=== PATIENT | female | born 1980 | race American Indian/Alaskan Native ===

== ENCOUNTER 2017-06-26 09:13 | Emergency (ER) | payer OTHER, MEDICAID ==
[2017-06-26 10:40] VITALS: BP 126/76
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
== END 2017-06-26 12:23 | disposition home or self-care (01) ==
LOC: ED 09:13
DX: S46.911A Strain of unspecified muscle, fascia and tendon at shoulder and upper arm level, right arm, initial encounter (principal); S29.012A Strain of muscle and tendon of back wall of thorax, initial encounter; V49.49XA Driver injured in collision with other motor vehicles in traffic accident, initial encounter; Y93.89 Activity, other specified; Y92.89 Other specified places as the place of occurrence of the external cause; Y99.8 Other external cause status
CPT/HCPCS: 99282

== ENCOUNTER 2021-03-31 10:29 | Emergency (ER) | payer MEDICAID, OTHER ==
[2021-03-31 10:38] VITALS: BP 125/70
--- NOTE | 2021-03-31 13:42 | Emergency Department Report ---
- General Chief Complaint: Upper Respiratory Infection Stated Complaint: CHEST PAIN/COUGH/FATIQUE Time Seen by Provider: 03/31/21 13:09 Source: patient Mode of arrival: Ambulatory Limitations: No Limitations - History of Present Illness Initial Comments: Patient is a 40-year-old female presents emergency room complaints of URI symptoms that began 3 days ago. She has associated cough, fatigue, generalized body aches, chills, shortness of breath. she states she has chest soreness after coughing. She denies any vomiting, diarrhea, abdominal pain, leg swelling. She has not received COVID-19 vaccine. She states that she got tested for COVID-19 yesterday but is awaiting her results. No past medical history. No allergies to medications. She denies any known sick contacts or recent travel. - Related Data Previous Rx's Medication Instructions Recorded Last Taken Type Acetaminophen 650 mg PO QID PRN #60 tablet 06/26/17 Unknown Rx Diclofenac Sodium [Voltaren] 1 applicator TP BID PRN #1 tube 06/26/17 Unknown Rx Benzonatate [Tessalon Perles] 100 mg PO Q8HR PRN #12 capsule 03/31/21 Unknown Rx guaiFENesin ER [Mucinex ER] 600 mg PO Q12H #14 tablet.er 03/31/21 Unknown Rx Allergies Allergy/AdvReac Type Severity Reaction Status Date / Time No Known Allergies Allergy Verified 03/31/21 10:33 ED Review of Systems ROS: Stated complaint: CHEST PAIN/COUGH/FATIQUE Other details as noted in HPI Comment: All other systems reviewed and negative ED Past Medical Hx - Past Medical History Previous Medical History?: No - Surgical History Past Surgical History?: No - Social History Smoking Status: Never Smoker Substance Use Type: None - Medications Home Medications: Home Medications Medication Instructions Recorded Confirmed Last Taken Type Acetaminophen 650 mg PO QID PRN #60 tablet 06/26/17 Unknown Rx Diclofenac Sodium [Voltaren] 1 applicator TP BID PRN #1 tube 06/26/17 Unknown Rx Benzonatate [Tessalon Perles] 100 mg PO Q8HR PRN #12 capsule 03/31/21 Unknown Rx guaiFENesin ER [Mucinex ER] 600 mg PO Q12H #14 tablet.er 03/31/21 Unknown Rx ED Physical Exam - General Limitations: No Limitations General appearance: alert, in no apparent distress - Head Head exam: Present: atraumatic, normocephalic - Eye Eye exam: Present: normal appearance - ENT ENT exam: Present: mucous membranes moist - Respiratory Respiratory exam: Present: normal lung sounds bilaterally. Absent: respiratory distress, wheezes, rales, rhonchi, stridor, chest wall tenderness, accessory muscle use, decreased breath sounds, prolonged expiratory - Cardiovascular Cardiovascular Exam: Present: regular rate, normal rhythm, normal heart sounds. Absent: systolic murmur, diastolic murmur, rubs, gallop - Neurological Exam Neurological exam: Present: alert, oriented X3 - Psychiatric Psychiatric exam: Present: normal affect, normal mood - Skin Skin exam: Present: warm, dry, intact ED Course Vital Signs 03/31/21 10:36 Temperature 99.0 F Pulse Rate 94 H Respiratory 18 Rate Blood Pressure 125/70 O2 Sat by Pulse 100 Oximetry ED Medical Decision Making - EKG Data EKG shows normal: sinus rhythm, axis, intervals, QRS complexes, ST-T waves Rate: normal - Radiology Data Radiology results: report reviewed Ordering Physician: YINA OROZCO Date of Service: 03/31/21 Procedure(s): XR chest routine 2V Accession Number(s): [id number] cc: YINA OROZCO Fluoro Time In Minutes: CHEST 2 VIEWS INDICATION: cough, SOB. COMPARISON: None FINDINGS: Support devices: None. Heart: Within normal limits. Lungs/pleura: No acute air space or interstitial disease. No pneumothorax. Additional findings: None. IMPRESSION: No acute findings. Signer Name: Silvano Blackwell Jr, MD Signed: 03/31/2021 1:41 PM Workstation Name: [id number] Transcribed By: TTR Dictated By: SILVANO BLACKWELL JR, MD Electronically Authenticated By: SILVANO BLACKWELL JR, MD Signed Date/Time: 03/31/21 134 DD/ 40 TD/TT: - Medical Decision Making Patient is a 40-year-old female presents emergency room complaints of URI symptoms that began 3 days ago. She has associated cough, fatigue, generalized body aches, chills, shortness of breath. she states she has chest soreness after coughing. She denies any vomiting, diarrhea, abdominal pain, leg swelling. She has not received COVID-19 vaccine. She states that she got tested for COVID-19 yesterday but is awaiting her results. No past medical history. No allergies to medications. She denies any known sick contacts or recent travel. Vitals are normal. No abnormality on physical examination as documented in chart. EKG ordered prior to my examination and was within normal limits. Chest x-ray: No acute findings. I ambulated patient in the emergency department for 2 minutes and her oxygen saturation is 99 to 100% on room air. Symptoms likely consistent with viral URI. Patient is presenting with the symptoms during COVID-19 pandemic, discussed COVID-19 with patient, discussed outpatient testing and to quarantine as necessary, discuss strict return precautions. Patient given prescription for medications for symptomatic relief. Advised patient Please take medication as prescribed. Please increase your fluid intake over the next several days. May take Tylenol as needed for fever or body aches. Follow-up with a primary care doctor for reexamination. Return to emergency room immediately for any new or worsening symptoms including but not limited to difficulty breathing, shortness of breath, severe chest pain, unable to tolerate by mouth intake, etc. recommend for you to get outpatient COVID-19 testing and self quarantine for 10 days from onset of symptoms if positive. Critical care attestation.: If time is entered above; I have spent that time in minutes in the direct care of this critically ill patient, excluding procedure time. ED Disposition Clinical Impression: Upper respiratory infection Qualifiers: URI type: unspecified URI Qualified Code(s): J06.9 - Acute upper respiratory infection, unspecified Disposition: 01 HOME / SELF CARE / HOMELESS Is pt being admited?: No Does the pt Need Aspirin: No Condition: Stable Instructions: Upper Respiratory Infection, Adult Additional Instructions: Please take medication as prescribed. Please increase your fluid intake over the next several days. May take Tylenol as needed for fever or body aches. Follow-up with a primary care doctor for reexamination. Return to emergency room immediately for any new or worsening symptoms including but not limited to difficulty breathing, shortness of breath, severe chest pain, unable to tolerate by mouth intake, etc. recommend for you to get outpatient COVID-19 testing and self quarantine for 10 days from onset of symptoms if positive. Prescriptions: guaiFENesin ER [Mucinex ER] 600 mg PO Q12H #14 tablet.er Benzonatate [Tessalon Perles] 100 mg PO Q8HR PRN #12 capsule PRN Reason: cough Referrals: ARIAN TRUJILLO MD [Staff Physician] - 2-3 Days [facility] [Provider Group] - 2-3 Days Forms: Work/School Release Form(ED) Time of Disposition: 13:54 Print Language: DIVEHI
--- NOTE | 2021-03-31 13:46 | XRay Report ---
CHEST 2 VIEWS INDICATION: cough, SOB. COMPARISON: None FINDINGS: Support devices: None. Heart: Within normal limits. Lungs/pleura: No acute air space or interstitial disease. No pneumothorax. Additional findings: None. IMPRESSION: No acute findings. Signer Name: Silvano Blackwell Jr, MD Signed: 03/31/2021 1:41 PM Workstation Name: [id number]
--- NOTE | 2021-04-01 09:20 | Electrocardiograph Report ---
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
== END 2021-03-31 15:35 | disposition home or self-care (01) ==
LOC: ED 10:29
DX: J06.9 Acute upper respiratory infection, unspecified (principal); Z79.899 Other long term (current) drug therapy
CPT/HCPCS: 71046; 93005

== ENCOUNTER 2021-08-21 07:07 | Emergency (ER) | payer OTHER ==
[2021-08-21 07:19] VITALS: BP 107/73
--- NOTE | 2021-08-21 11:21 | Emergency Department Report ---
ED Back Pain/Injury HPI - General Chief Complaint: Back Pain/Injury Stated Complaint: HEADACHE, BACK HIP LEG PAIN Time Seen by Provider: 08/21/21 10:50 Source: patient Limitations: No Limitations - History of Present Illness Initial Comments: 41-year-old female who denies any significant past medical history presents to the ER today with complaints of a 1 week history of right lower back pain. Patient states that the pain started while she was at work. She states that the pain starts in her lower back, radiates into her right hip and down to her right knee. She states that the pain is worse when she standing and walking and sometimes when she lays supine, in her right side. She states that yesterday she was walking, and it felt like her right leg was about to give out. She states that she has had intermittent numbness and tingling in the right leg but denies any saddle anesthesia, bowel or bladder incontinence, abdominal pain, fever or chills. She denies similar symptoms in the past. She states that she has been taking leftover Percocet, ultram and muscle relaxers which she states are old prescriptions from about 1 year that she has had from prior incidents without much relief. She states that she is currently on Depo, and has not had a menstrual cycle secondary to the Depakote. MD Complaint: back pain -: week(s) - Related Data Previous Rx's Medication Instructions Recorded Last Taken Type Acetaminophen 650 mg PO QID PRN #60 tablet 06/26/17 Unknown Rx Diclofenac Sodium [Voltaren] 1 applicator TP BID PRN #1 tube 06/26/17 Unknown Rx Benzonatate [Tessalon Perles] 100 mg PO Q8HR PRN #12 capsule 03/31/21 Unknown Rx guaiFENesin ER [Mucinex ER] 600 mg PO Q12H #14 tablet.er 03/31/21 Unknown Rx Acetaminophen/Codeine [Tylenol 1 tab PO Q6H PRN #12 tab 08/21/21 Unknown Rx /Codeine # 3 tab] Metaxalone [Skelaxin] 800 mg PO TID #30 tablet 08/21/21 Unknown Rx methylPREDNISolone [Medrol 4MG 4 mg PO DAILY #1 tab.ds.pk 08/21/21 Unknown Rx DOSEPAK (21 tabs)] Allergies Allergy/AdvReac Type Severity Reaction Status Date / Time No Known Allergies Allergy Verified 03/31/21 10:33 ED Review of Systems ROS: Stated complaint: HEADACHE, BACK HIP LEG PAIN Other details as noted in HPI Comment: All other systems reviewed and negative Constitutional: denies: chills, fever Eyes: denies: eye pain, eye discharge, vision change ENT: denies: ear pain, throat pain Respiratory: denies: cough, shortness of breath, SOB with exertion, SOB at rest, wheezing Cardiovascular: denies: chest pain, palpitations, edema, syncope, paroxysmal nocturnal dyspnea Gastrointestinal: denies: abdominal pain, nausea, diarrhea, constipation, hematemesis, hematochezia Genitourinary: denies: urgency, dysuria, frequency, hematuria, discharge, abnormal menses, dyspareunia Musculoskeletal: back pain. denies: joint swelling, arthralgia, myalgia Skin: denies: rash, lesions, change in color, change in hair/nails, pruritus Neurological: abnormal gait. denies: headache, weakness, numbness, paresthesias, confusion, vertigo Psychiatric: denies: anxiety, depression, auditory hallucinations, visual hallucinations, homicidal thoughts, suicidal thoughts Hematological/Lymphatic: denies: easy bleeding, easy bruising, swollen glands ED Past Medical Hx - Social History Smoking Status: Never Smoker Substance Use Type: None - Medications Home Medications: Home Medications Medication Instructions Recorded Confirmed Last Taken Type Acetaminophen 650 mg PO QID PRN #60 tablet 06/26/17 Unknown Rx Diclofenac Sodium [Voltaren] 1 applicator TP BID PRN #1 tube 06/26/17 Unknown Rx Benzonatate [Tessalon Perles] 100 mg PO Q8HR PRN #12 capsule 03/31/21 Unknown Rx guaiFENesin ER [Mucinex ER] 600 mg PO Q12H #14 tablet.er 03/31/21 Unknown Rx Acetaminophen/Codeine [Tylenol 1 tab PO Q6H PRN #12 tab 08/21/21 Unknown Rx /Codeine # 3 tab] Metaxalone [Skelaxin] 800 mg PO TID #30 tablet 08/21/21 Unknown Rx methylPREDNISolone [Medrol 4MG 4 mg PO DAILY #1 tab.ds.pk 08/21/21 Unknown Rx DOSEPAK (21 tabs)] ED Physical Exam - General Limitations: No Limitations General appearance: alert, in no apparent distress - Head Head exam: Present: atraumatic, normocephalic, normal inspection - Eye Eye exam: Present: normal appearance, PERRL, EOMI Pupils: Present: normal accommodation - ENT ENT exam: Present: mucous membranes moist - Neck Neck exam: Present: normal inspection, full ROM. Absent: meningismus - Respiratory Respiratory exam: Present: normal lung sounds bilaterally. Absent: respiratory distress, wheezes, rales, rhonchi - Cardiovascular Cardiovascular Exam: Present: regular rate, normal rhythm, normal heart sounds - GI/Abdominal GI/Abdominal exam: Present: soft. Absent: distended, tenderness, guarding, rebound - Rectal Rectal exam: Present: normal rectal tone - Extremities Exam Extremities exam: Present: normal inspection, full ROM, normal capillary refill, other (Dorsalis pedis pulse and posterior tibialis pulse normal). Absent: pedal edema, calf tenderness - Back Exam Back exam: Present: normal inspection, paraspinal tenderness (Right lower lumbar area), vertebral tenderness (Lower lumbar area), other (Positive right straight leg raise at about 60 degrees.). Absent: full ROM (Range of motion of the lumbar spine reduced secondary to pain.) - Neurological Exam Neurological exam: Present: alert, oriented X3, CN II-XII intact, normal gait, reflexes normal (patient also able to stand on his toes), other (Mild limping gait but otherwise normal.). Absent: motor sensory deficit - Psychiatric Psychiatric exam: Present: normal affect, normal mood - Skin Skin exam: Present: intact ED Course Vital Signs 08/21/21 07:18 Temperature 98.5 F Pulse Rate 68 Respiratory 15 Rate Blood Pressure 107/73 O2 Sat by Pulse 100 Oximetry ED Medical Decision Making - Medical Decision Making The patient presented with acute back pain radiating down into her right hip and right leg. The patient is neurologically intact and is ambulatory in the ED. the patient has no fever, no bowel or bladder incontinence, no saddle anesthesia and is otherwise alert and well-appearing. She has a normal rectal tone. Her history, and physical examination and does not suggest the presence of acute spinal epidural abscess, acute epidural bleed, cauda equina syndrome, abdominal/thoracic aortic aneurysm, aortic dissection or other acute process requiring further testing, treatment or consultation in the emergency department. The vital signs have been stable. Informed patient symptoms concerning for sciatica which could be coming from a herniated disc. Recommend following up with the orthospine specialist or PCP for outpatient MRI. She will be given medication to help her symptoms. The patient condition is stable and appropriate for discharge. The patient will pursue further outpatient evaluation with the primary care physician or other designated or consulting physician as indicated in the discharge instructions. Critical care attestation.: If time is entered above; I have spent that time in minutes in the direct care of this critically ill patient, excluding procedure time. ED Disposition Clinical Impression: Sciatica Disposition: HOME / SELF CARE / HOMELESS Is pt being admited?: No Does the pt Need Aspirin: No Condition: Stable Instructions: Radicular Pain, Sciatica, [id number] Additional Instructions: I recommend that you take the Medrol Dosepak, the Skelaxin and the Tylenol threes as prescribed to help your pain. I do recommend that she do the back stretching exercises for sciatica that was given to you at discharge. If your symptoms persist after 1 week I do recommend that you follow-up with the orthospine specialist for further MRI and outpatient MRI. Return to the ER if your symptoms worsens in any way. Prescriptions: methylPREDNISolone [Medrol 4MG DOSEPAK (21 tabs)] 4 mg PO DAILY #1 tab.ds.pk Metaxalone [Skelaxin] 800 mg PO TID #30 tablet Acetaminophen/Codeine [Tylenol /Codeine # 3 tab] 1 tab PO Q6H PRN #12 tab PRN Reason: pain Referrals: PRIMARY CARE, [Primary Care Provider] - 3-5 Days [facility] [Provider Group] - 3-5 Days Forms: Work/School Release Form(ED) Time of Disposition: 11:52
[2021-08-21] MEDS ORDERED: dexAMETHasone 20 MG/5 ML VIAL IM ONE (11:31)
[2021-08-21] MEDS ORDERED: KETOROLAC 60 MG/2 ML INJ IM ONE (11:31)
== END 2021-08-21 12:12 | disposition home or self-care (01) ==
LOC: ED 07:07
DX: M54.41 Lumbago with sciatica, right side (principal); Z79.899 Other long term (current) drug therapy
CPT/HCPCS: 96372; 99282; J1100; J1885